=== PATIENT | male | born 1985 | race Caucasian/White ===

== ENCOUNTER 2020-11-24 22:33 | Observation (INO) ==
[2020-11-25 00:40] LABS: Basophils % 0.3 %; Eosinophils # 0.2 K/mcL (0.0-0.6); Eosinophils % 1.1 %; Hematocrit 48.2 % (37.5-50.1); Hemoglobin 15.7 g/dL (12.9-16.9); Immature Granulocytes % 0.8 % (0-4); Lymphocytes # 5.5 K/mcL (0.6-4.6); Lymphocytes % 39.8 %; Mean Corpuscular HGB Conc 32.6 g/dL (31.6-35.5); Mean Corpuscular Hemoglobin 30.3 pg (28.0-33.3); Mean Corpuscular Volume 92.9 fL (83.0-100.0); Mean Platelet Volume 9.3 fL (9.4-12.4); Monocytes # 1.6 K/mcL (0.0-1.3); Monocytes % 11.7 %; Platelet Count 244 K/mcL (140-400); Red Blood Count 5.19 M/mcL (4.19-5.50); Red Cell Distribution Width 11.7 % (11.5-14.5); Segmented Neutrophils % 46.3 %; White Blood Count 13.9 K/mcL (4.3-11.1)
[2020-11-25 00:46] LABS: Neutrophils # 6.4 K/mcL (1.6-8.9)
[2020-11-25 00:58] LABS: BUN/Creatinine Ratio 14 (6-26); Blood Urea Nitrogen 15 mg/dL (6-20); Calcium 9.6 mg/dL (8.6-10.3); Carbon Dioxide 14 mEq/L (23-29); Chloride 99 mEq/L (98-107); Glucose 233 mg/dL (70-105); Magnesium 1.8 mg/dL (1.6-2.6); Osmolality,Calculated 300 (280-300); Potassium 3.2 mEq/L (3.5-5.1); Sodium 141 mEq/L (136-145); eGFR For African Americans > 60 (> 60); eGFR For Non-African Americans > 60 (> 60)
[2020-11-25 01:05] LABS: Platelet Estimate Normal (Normal); Reactive Lymphocytes Present (Not Present); Smudge Cells Present (Not Present)
[2020-11-25] MEDS ORDERED: *HR* LORazepam 2 MG/ML VIAL ONE (01:54)
[2020-11-25] MEDS ORDERED: *HR* LORazepam 2 MG/ML VIAL IVP ONE ×2 (01:56→02:42)
[2020-11-25 02:06] LABS: Amphetamine Screen,Urine Negative ng/mL (Cutoff=1000); Barbiturate Screen,Urine Negative ng/mL (Cutoff=200); Benzodiazepines Screen,Urine Negative ng/mL (Cutoff=200); Cannabinoid Screen,Urine Negative ng/mL (Cutoff = 50); Cocaine Screen,Urine Negative ng/mL (Cutoff= 300); Opiate Screen,Urine Negative ng/mL (Cutoff=300); Phencyclidine Screen,Urine Negative ng/mL (Cutoff=25)
[2020-11-25 02:09] LABS: Bilirubin,Urine Negative (Negative); Blood,Urine Moderate (Negative); Clarity,Urine Clear (Clear); Color,Urine Light-Yellow (Yellow); Glucose,Urine (UA) 30 mg/dL (Normal); Hyaline Casts,Urine Few per lpf (None Seen); Ketones,Urine 10 mg/dL (Negative); Leukocyte Esterase,Urine Negative (Negative); Mucus,Urine Few per lpf (None-Few); Nitrite,Urine Negative (Negative); Protein,Urine >=300 mg/dL (Neg-Trace); RBC,Urine 0-3 per hpf (0-3); Specific Gravity,Urine 1.022 (1.010-1.025); Squamous Epithelial Cell,Urine Few per hpf (None-Few); Urobilinogen,Urine Normal (Normal); WBC,Urine 0-3 per hpf (0-3)
[2020-11-25 02:54] LABS: Valproate 47 mcg/mL (50-100)
[2020-11-25 03:07] LABS: VBG HCO3 22 mEq/L (21-27); VBG PCO2 39 mmHg (41-51); VBG PH 7.36 pH Units (7.32-7.42); VBG PO2 174 mmHg (25-50)
[2020-11-25] MEDS ORDERED: 0.9 % Sodium Chloride 1,000 ML IVC ONE ×2 (03:53→03:56)
[2020-11-25] MEDS ORDERED: Ondansetron 4 MG/2 ML VIAL IVP PRN (05:50)
[2020-11-25] MEDS ORDERED: Acetaminophen 325 MG TABLET PO PRN (05:50)
[2020-11-25] MEDS ORDERED: Naloxone 0.4 MG/ML INJ IVP PRN (05:50)
[2020-11-25] MEDS ORDERED: *HR* LORazepam 1 MG TABLET PO PRN (05:54)
[2020-11-25] MEDS ORDERED: Ipratropium/Albuterol Neb 3 ML IH PRN (05:54)
[2020-11-25] MEDS ORDERED: *HR* Dextrose 50 % in Water (Syg) 50 ML SYRINGE IVP PRN (05:55)
[2020-11-25] MEDS ORDERED: Dextrose Gel 15 GM/37.5 ML TUBE PO PRN ×2 (05:55)
[2020-11-25] MEDS ORDERED: D5% in Water 1,000 ML IVC PRN (05:55)
[2020-11-25] MEDS ORDERED: 0.9 % Sodium Chloride 1,000 ML IVC SCH (06:00)
[2020-11-25] MEDS ORDERED: Valproic Acid INJ 1,000 MG in 0.9 % Sodium Chloride 100 ML IVPB ONE (08:30)
[2020-11-25] MEDS: Insulin LISPRO 300 UNITS/3 ML VIAL SUBQ SCH ×3 (08:50→16:41)
[2020-11-25 10:40] LABS: Prothrombin Time 11.5 Seconds (9.4-12.1)
[2020-11-25 10:47] LABS: Albumin 3.5 g/dL (3.5-5.7); Albumin/Globulin Ratio 1.7 (1.1-2.2); Bilirubin,Direct 0.1 mg/dL (0.0-0.2); Bilirubin,Indirect 0.3 mg/dL (0.0-1.0); Bilirubin,Total 0.4 mg/dL (0.3-1.0); Globulin 2.1 g/dL (2.4-3.5); Total Protein 5.6 g/dL (6.4-8.9)
[2020-11-25 11:00] LABS: Thyroid Stimulating Hormone 1.711 mcIU/mL (0.340-5.600)
[2020-11-25 11:05] LABS: Prolactin 11.25 ng/mL (3.00-14.70)
[2020-11-25 11:21] LABS: Estimated Average Glucose 160 mg/dl; Hemoglobin A1C 7.2 %
[2020-11-25] MEDS: lamoTRIgine 100 MG TABLET PO SCH (13:15)
[2020-11-25] MEDS: levETIRAcetam 250 MG TABLET PO SCH (16:47)
[2020-11-25] MEDS: 0.9 % Sodium Chloride 1,000 ML IVC SCH (16:47)
[2020-11-25] MEDS ORDERED: Insulin LISPRO 300 UNITS/3 ML VIAL SUBQ SCH (21:00)
[2020-11-26 02:34] LABS: Basophils % 0.1 %; Eosinophils # 0.1 K/mcL (0.0-0.6); Eosinophils % 1.7 %; Hematocrit 36.4 % (37.5-50.1); Immature Granulocytes % 0.5 % (0-4); Lymphocytes # 2.1 K/mcL (0.6-4.6); Lymphocytes % 28.1 %; Mean Corpuscular HGB Conc 34.6 g/dL (31.6-35.5); Mean Corpuscular Hemoglobin 30.8 pg (28.0-33.3); Mean Platelet Volume 9.2 fL (9.4-12.4); Monocytes # 0.8 K/mcL (0.0-1.3); Monocytes % 10.3 %; Neutrophils # 4.5 K/mcL (1.6-8.9); Platelet Count 164 K/mcL (140-400); Red Blood Count 4.09 M/mcL (4.19-5.50); Red Cell Distribution Width 11.8 % (11.5-14.5); Segmented Neutrophils % 59.3 %; White Blood Count 7.5 K/mcL (4.3-11.1)
[2020-11-26 02:38] LABS: Hemoglobin 12.6 g/dL (12.9-16.9)
[2020-11-26 03:03] LABS: BUN/Creatinine Ratio 17 (6-26); Blood Urea Nitrogen 14 mg/dL (6-20); Calcium 8.4 mg/dL (8.6-10.3); Carbon Dioxide 24 mEq/L (23-29); Chloride 106 mEq/L (98-107); Creatine Kinase 3693 Units/L (30-223); Glucose 146 mg/dL (70-105); Magnesium 1.8 mg/dL (1.6-2.6); Osmolality,Calculated 287 (280-300); Potassium 3.6 mEq/L (3.5-5.1); Sodium 137 mEq/L (136-145); eGFR For African Americans > 60 (> 60); eGFR For Non-African Americans > 60 (> 60)
[2020-11-26] MEDS: 0.9 % Sodium Chloride 1,000 ML IVC SCH (03:15)
[2020-11-26] MEDS: levETIRAcetam 250 MG TABLET PO SCH (05:24)
[2020-11-26] MEDS: lamoTRIgine 100 MG TABLET PO SCH (09:09)
[2020-11-26] MEDS: Insulin LISPRO 300 UNITS/3 ML VIAL SUBQ SCH (09:10)
[2020-11-26 11:09] VITALS: BP 157/105; PULSE 89; TEMP 98.3; O2SAT 98
== END 2020-11-26 12:24 | disposition home or self-care (01) ==
LOC: EMEROOARM 22:33 → 2NENU 22:33 → SUATTDRO 11-25 05:51 → 2NENU 11-25 07:04
PROVIDERS: ADMIT Internal Medicine; ATTEND Internal Medicine